=== PATIENT | male | born 1950 | race African-American/Black ===

== ENCOUNTER 2016-08-16 23:47 | Inpatient (IN) | payer MEDICAID ==
[~2016-08-16] VITALS: Ht 182.9 cm; Wt 88.0 kg
[2016-08-17] MEDS ORDERED: IV NS 0.9% 500 ML IV ONE (00:16)
[2016-08-17] MEDS ORDERED: IV SET PRIMARY 1 EA INFUS.SET MC ONE (00:16)
[2016-08-17] MEDS ORDERED: IV NS 0.9% 500 ML BAG IV ONE (00:30)
[2016-08-17 00:34] LABS: BASOPHILS % (AUTO) 0.9 % (0.0-2.0); DIFF TOTAL % 100 %; EOSINOPHILS # (AUTO) 0.1 /CMM (0.0-0.7); EOSINOPHILS % (AUTO) 1.9 % (0.0-6.0); HEMATOCRIT 42 % (39-51); HEMOGLOBIN 13.7 g/dL (13.5-17.5); LYMPHOCYTES # (AUTO) 1.7 /CMM (0.8-4.8); MEAN CORPUSCULAR HEMOGLOBIN 31 PG (26.0-33.0); MEAN CORPUSCULAR HGB CONC 33 g/dl (31.0-36.0); MEAN CORPUSCULAR VOLUME 93 fL (80-96); MONOCYTES # (AUTO) 0.6 /CMM (0.1-1.30); MONOCYTES % (AUTO) 13.5 % (2.0-12.0); NEUTROPHILS # (AUTO) 1.8 /CMM (1.8-8.9); NEUTROPHILS % (AUTO) 42.7 % (43.0-81.0); PLATELET COUNT (AUTO) 289 /CMM (150-450); RED BLOOD CELL COUNT(AUTO) 4.49 MIL/uL (4.5-6.0); WHITE BLOOD COUNT (AUTO) 4.2 K/uL (4.3-11.0)
[2016-08-17 00:41] LABS: ANION GAP 11 (5-14); CALCIUM, SERUM 8.9 mg/dL (8.5-10.1); CARBON DIOXIDE 29 mmol/L (21-32); CHLORIDE 106 mmol/L (98-107); CREATININE 1.3 mg/dL (0.6-1.3); GFR 67 mL/min (>60); GLUCOSE 176 mg/dL (74-106); SODIUM SERUM 142 mmol/L (136-145); UREA NITROGEN, BLOOD 14 mg/dL (7-18)
[2016-08-17 00:45] LABS: INR 1.05 (0.87-1.13); PROTHROMBIN TIME 11.4 SECS (9.5-12.7)
[2016-08-17 00:50] LABS: ALANINE AMINOTRANSFERASE 24 U/L (12-78); ALBUMIN 3.7 g/dL (3.4-5.0); ASPARTATE AMINOTRANSFERASE 10 U/L (15-37); BILIRUBIN,DIRECT 0.2 mg/dL (0.0-0.2); BILIRUBIN,TOTAL 0.9 mg/dL (0.2-1.0); INDIRECT BILIRUBIN 0.7 mg/dL (0.0-1.1); TOTAL PROTEIN, SERUM 7.4 g/dL (6.4-8.2); TROPONIN I < 0.017 ng/mL (0.00-0.056)
[2016-08-17 02:32] VITALS: BP 126/88
[2016-08-17] MEDS ORDERED: IV PREMIX NS +20MEQ KCL 1 L IV ONE (03:03)
[2016-08-17] MEDS ORDERED: IV SET PRIMARY PUMP SET 1 EA INFUS.SET MC ONE (03:08)
[2016-08-17] MEDS: Potassium Chloride 20 MEQ in IV NS 0.9% 1,000 ML IV PRN ×2 (03:27→12:59)
[2016-08-17] MEDS ORDERED: HYDROCODONE/APAP 5/325MG 1 EACH TABLET ONE (03:55)
[2016-08-17] MEDS: HYDROCODONE/APAP 5/325MG 1 EACH TABLET PO PRN ×2 (03:59→09:12)
[2016-08-17 04:00] VITALS: BP 120/76
[2016-08-17 04:19] VITALS: BP 120/76
[2016-08-17 06:54] LABS: BASOPHILS % (AUTO) 0.5 % (0.0-2.0); DIFF TOTAL % 100 %; EOSINOPHILS # (AUTO) 0.1 /CMM (0.0-0.7); EOSINOPHILS % (AUTO) 1.2 % (0.0-6.0); HEMATOCRIT 40 % (39-51); HEMOGLOBIN 13.3 g/dL (13.5-17.5); LYMPHOCYTES # (AUTO) 1.8 /CMM (0.8-4.8); LYMPHOCYTES % (AUTO) 38.1 % (20.0-44.0); MEAN CORPUSCULAR HEMOGLOBIN 31 PG (26.0-33.0); MEAN CORPUSCULAR HGB CONC 33 g/dl (31.0-36.0); MEAN CORPUSCULAR VOLUME 94 fL (80-96); MONOCYTES # (AUTO) 0.6 /CMM (0.1-1.30); MONOCYTES % (AUTO) 11.4 % (2.0-12.0); NEUTROPHILS # (AUTO) 2.4 /CMM (1.8-8.9); NEUTROPHILS % (AUTO) 48.8 % (43.0-81.0); PLATELET COUNT (AUTO) 233 /CMM (150-450); RED BLOOD CELL COUNT(AUTO) 4.27 MIL/uL (4.5-6.0); WHITE BLOOD COUNT (AUTO) 4.8 K/uL (4.3-11.0)
[2016-08-17 07:08] LABS: CALCIUM, SERUM 8.7 mg/dL (8.5-10.1); CREATININE 0.9 mg/dL (0.6-1.3)
[2016-08-17 07:12] LABS: THYROID STIMULATING HORMONE 2.302 uIU/mL (0.358-3.74)
[2016-08-17 08:00] VITALS: BP 108/66
[2016-08-17] MEDS ORDERED: TAMS0.4C34 PO (08:24)
[2016-08-17] MEDS ORDERED: ZOLPIDEM TARTRATE 5 MG TABLET PO PRN (08:30)
[2016-08-17] MEDS ORDERED: ACETAMINOPHEN 325 MG TABLET PO PRN (08:30)
[2016-08-17 12:00] VITALS: BP 134/87
[2016-08-17 16:00] VITALS: BP 127/84
[2016-08-17] MEDS ORDERED: TAMSULOSIN 0.4 MG CAP.SR.24H PO SCH (22:00)
== END 2016-08-17 17:06 | disposition home or self-care (01) | DRG 422 ==
LOC: ER 23:54 → TELE1 08-17 01:59
PROVIDERS: ADMIT Internal Medicine; ATTEND Internal Medicine
DX: E86.0 Dehydration (principal); R00.1 Bradycardia, unspecified; H40.9 Unspecified glaucoma; H54.0 Blindness, both eyes; N40.0 Benign prostatic hyperplasia without lower urinary tract symptoms; R55 Syncope and collapse; T44.6X5A Adverse effect of alpha-adrenoreceptor antagonists, initial encounter; Y92.89 Other specified places as the place of occurrence of the external cause
CPT/HCPCS: 36415; 70450-TC; 71010-TC; 80048-TC; 80076-TC; 82962-TC; 84443-TC; 84484-TC; 85025-TC; 85730-TC; 87081-TC; 93307-TC; 93880-TC; A4606; J3480; J3490; J7030; J7040; Z7610

== ENCOUNTER 2023-09-22 13:19 | Emergency (ER) | payer MEDICAID, MEDICARE ==
[~2023-09-22] VITALS: Ht 180.3 cm; Wt 88.5 kg
[~2023-09-22 13:19] MED LIST: TAMS0.4C34 PO
[2023-09-22] MEDS ORDERED: LIDO30AD10 TP (14:20)
[2023-09-22] MEDS ORDERED: NAPR-1164 PO (14:20)
[2023-09-22] MEDS ORDERED: CYCLOBENZAPRINE 10 MG TABLET ONE (14:38)
[2023-09-22] MEDS ORDERED: KETOROLAC TROMETHAMINE 15 MG/ML VIAL ONE (14:38)
[2023-09-22] MEDS: KETOROLAC TROMETHAMINE 15 MG/ML VIAL IM ONE (14:41)
[2023-09-22] MEDS: CYCLOBENZAPRINE 10 MG TABLET PO ONE (14:41)
[2023-09-22 15:04] VITALS: BP 122/80; TEMP 98.5; O2SAT 100
== END 2023-09-22 15:04 | disposition home or self-care (01) ==
LOC: ER 13:23
DX: G89.29 Other chronic pain (principal); M54.50 Low back pain, unspecified; E11.9 Type 2 diabetes mellitus without complications; I10 Essential (primary) hypertension
CPT/HCPCS: 99283; 96372; J1885

== ENCOUNTER 2024-01-20 07:05 | Emergency (ER) | payer MEDICARE ==
[~2024-01-20] VITALS: Ht 185.4 cm; Wt 86.2 kg
[~2024-01-20 07:05] MED LIST changes: +LIDO30AD10 TP; +NAPR-1164 PO
[2024-01-20] MEDS: KETOROLAC TROMETHAMINE INJ 60 MG/2 ML VIAL IM ONE (07:30)
[2024-01-20] MEDS: CYCLOBENZAPRINE 10 MG TABLET PO ONE (07:30)
[2024-01-20] MEDS ORDERED: KETOROLAC TROMETHAMINE INJ 30 MG/ML VIAL ONE (07:55)
[2024-01-20] MEDS ORDERED: CYCLOBENZAPRINE 10 MG TABLET ONE (07:56)
[2024-01-20 12:16] VITALS: BP 126/87; TEMP 97.8; O2SAT 98
== END 2024-01-20 12:16 | disposition home or self-care (01) ==
LOC: ER 07:12
DX: G89.29 Other chronic pain (principal); M54.50 Low back pain, unspecified; N40.0 Benign prostatic hyperplasia without lower urinary tract symptoms; E11.9 Type 2 diabetes mellitus without complications; F17.200 Nicotine dependence, unspecified, uncomplicated; Z79.899 Other long term (current) drug therapy
CPT/HCPCS: 99283; 96372; J1885